=== PATIENT | male | born 1940 | race Caucasian/White ===

== ENCOUNTER 2018-08-08 03:05 | Inpatient (IN) ==
[2018-08-08] MEDS ORDERED: PANTOPRAZOLE 40 MG VIAL IV STA (03:35)
[2018-08-08] MEDS ORDERED: ASPIRIN 325 MG TABLET PO STA (03:35)
[2018-08-08] MEDS ORDERED: ALUM/MAG/SIMETH/LIDO VISC 1:1 30 ML BOTTLE PO STA (03:35)
[2018-08-08] MEDS ORDERED: MORPHINE 4 MG/1 ML VIAL IV STA (03:35)
[2018-08-08] MEDS ORDERED: NITROGLYCERIN 2% OINT 1 INCH/GM PACK TOP STA (03:35)
[2018-08-08] MEDS ORDERED: ENOXAPARIN 100 MG/ML SYRINGE SUBCUT STA (03:35)
[2018-08-08] MEDS ORDERED: ONDANSETRON 4 MG/2 ML VIAL IV STA (03:35)
[2018-08-08 03:49] LABS: Basophils # 0.1 10*3/uL (0.0-0.2); Basophils % 0.8 % (0.0-0.8); Eosinophils # 0.1 10*3/uL (0.0-0.87); Eosinophils % 0.9 % (0.00-10.9); Hematocrit 41.3 VOL% (42.0-52.0); Hemoglobin 13.1 GM/DL (14.0-18.0); Immature Granulocytes % 0.4 %; Immature Granulocytes Absolute 0.04 #; Lymphocytes # 1.6 10*3/uL (1.4-4.0); Lymphocytes % 16.5 % (21.2-54.2); Mean Corpuscular HGB Conc 31.7 GM/DL (32-36); Mean Corpuscular Hemoglobin 28 PG (27-34); Mean Corpuscular Volume 87.9 FL (87-102); Mean Platelet Volume 12.1 FL (9.6-12.0); Monocytes # 0.5 10*3/uL (0.11-0.8); Monocytes % 4.6 % (1.7-12.7); Neutrophils # 7.4 10*3/uL (1.4-7.4); Neutrophils % 76.8 % (38.7-73.9); Platelet Count 182 T/CUMM (130-400); Red Cell Distribution Width 14.8 % (9.3-17.3); White Blood Count 9.7 T/CUMM (4-12)
[2018-08-08 03:58] LABS: INR 1.1; PT Patient Result 11.4 SECS
[2018-08-08 04:09] LABS: Albumin 3.7 G/DL (3.4-5.0); Calcium 8.8 MG/DL (8.5-10.1); Osmolality,Calculated 281.3 MOS/KG (273-304); Potassium 3.8 MMOL/L (3.5-5.1); Total Protein 7.4 G/DL (6.4-8.3)
[2018-08-08] MEDS ORDERED: ONDANSETRON 4 MG/2 ML VIAL IV PRN (04:49)
[2018-08-08] MEDS ORDERED: MAGNESIUM SULF RIDER 4 GM in PREMIX 1 EACH IV PRN (04:49)
[2018-08-08] MEDS ORDERED: MORPHINE 4 MG/1 ML VIAL IV PRN (04:49)
[2018-08-08] MEDS ORDERED: POTASSIUM CHLORIDE 20 MEQ TABLET PO PRN (04:49)
[2018-08-08] MEDS ORDERED: MAGNESIUM SULF RIDER 2 GM in PREMIX 1 EACH IV PRN (04:49)
[2018-08-08] MEDS: SODIUM CHLORIDE 0.9% 1,000 ML IV SCH ×2 (05:28→18:42)
[2018-08-08] MEDS ORDERED: NITROGLYCERIN 2% OINT 1 INCH/GM PACK TOP SCH (06:00)
[2018-08-08] MEDS ORDERED: HEPARIN/NACL 0.9% 2 UNITS/ML 1,000 ML IV ONE (07:13)
[2018-08-08] MEDS ORDERED: LIDOCAINE 1% 20 ML VIAL ONE (07:13)
[2018-08-08] MEDS ORDERED: MIDAZOLAM 2 MG/2 ML VIAL ONE (07:14)
[2018-08-08] MEDS ORDERED: HYDROmorphone 2 MG/1 ML VIAL ONE (07:14)
[2018-08-08] MEDS ORDERED: BIVALIRUDIN 250 MG VIAL IV ONE (07:33)
[2018-08-08] MEDS ORDERED: ZALEPLON 5 MG CAPSULE PO PRN (08:03)
[2018-08-08] MEDS ORDERED: TICAGRELOR 90 MG TABLET ONE (08:06)
[2018-08-08] MEDS ORDERED: APIXABAN 2.5 MG TABLET PO SCH (09:00)
[2018-08-08] MEDS ORDERED: ASPIRIN EC 325 MG TABLET PO SCH (09:00)
[2018-08-08] MEDS ORDERED: PANTOPRAZOLE 40 MG TABLET PO SCH ×2 (09:00→21:00)
[2018-08-08 09:08] LABS: CKMB % 8.3 %
[2018-08-08 09:14] LABS: Troponin I 28.2 NG/ML (0.00-0.045)
[2018-08-08] MEDS: ACYCLOVIR 200 MG CAPSULE PO SCH ×3 (10:05→21:53)
[2018-08-08] MEDS: OMEGA 3 ACID ETHYL ESTERS 1 GM CAPSULE PO SCH (10:05)
[2018-08-08] MEDS: SOTALOL 80 MG TABLET PO SCH ×2 (10:05→21:50)
[2018-08-08] MEDS: POTASSIUM CHLORIDE 10 MEQ TABLET PO SCH (10:05)
[2018-08-08] MEDS: LOSARTAN 50 MG TABLET PO SCH (10:05)
[2018-08-08] MEDS: TICAGRELOR 90 MG TABLET PO SCH ×2 (10:06→21:49)
[2018-08-08] MEDS ORDERED: INFLUENZA VIRUS VACCINE 0.5 ML SYRINGE IM ONE (10:28)
[2018-08-08] MEDS: ACETAMINOPHEN 325 MG TABLET PO PRN ×2 (14:15→18:55)
[2018-08-08] MEDS ORDERED: ENOXAPARIN 100 MG/ML SYRINGE SUBCUT SCH (15:00)
[2018-08-08] MEDS ORDERED: diphenhydrAMINE CAP 25 MG CAPSULE PO PRN (15:04)
[2018-08-08] MEDS ORDERED: FUROSEMIDE 40 MG/4 ML VIAL IV ONE (15:04)
[2018-08-08 17:08] LABS: CKMB % 7.2 %
[2018-08-08 17:11] LABS: Troponin I 30.1 NG/ML (0.00-0.045)
[2018-08-08] MEDS ORDERED: SIMVASTATIN 20 MG TABLET PO SCH (21:00)
[2018-08-09 00:39] LABS: Basophils % 0.5 % (0.0-0.8); Eosinophils # 0.1 10*3/uL (0.0-0.87); Eosinophils % 0.8 % (0.00-10.9); Hematocrit 34.2 VOL% (42.0-52.0); Hemoglobin 10.9 GM/DL (14.0-18.0); Immature Granulocytes % 0.3 %; Immature Granulocytes Absolute 0.02 #; Lymphocytes # 1.3 10*3/uL (1.4-4.0); Lymphocytes % 21.4 % (21.2-54.2); Mean Corpuscular HGB Conc 31.9 GM/DL (32-36); Mean Corpuscular Hemoglobin 28 PG (27-34); Mean Corpuscular Volume 87.5 FL (87-102); Mean Platelet Volume 11.9 FL (9.6-12.0); Monocytes # 0.5 10*3/uL (0.11-0.8); Monocytes % 8.1 % (1.7-12.7); Neutrophils # 4.2 10*3/uL (1.4-7.4); Neutrophils % 68.9 % (38.7-73.9); Platelet Count 135 T/CUMM (130-400); Red Blood Count 3.91 MC/CUMM (3.8-5.5); Red Cell Distribution Width 14.8 % (9.3-17.3); White Blood Count 6.1 T/CUMM (4-12)
[2018-08-09 01:20] LABS: CKMB % 4.7 %
[2018-08-09 01:22] LABS: Troponin I 15.2 NG/ML (0.00-0.045)
[2018-08-09 01:28] LABS: Albumin 2.7 G/DL (3.4-5.0); Bilirubin,Total 0.8 MG/DL (0.2-1.0); Calcium 7.6 MG/DL (8.5-10.1); Osmolality,Calculated 285.1 MOS/KG (273-304); Potassium 3.4 MMOL/L (3.5-5.1); Risk Ratio 2.33; Thyroid Stimulating Hormone 0.562 uIU/ml (0.358-3.74); Total Protein 5.9 G/DL (6.4-8.3); VLDL CHOLESTEROL 18.4 MG/DL
[2018-08-09] MEDS ORDERED: POTASSIUM CHLORIDE 20 MEQ TABLET PO ONE (07:34)
[2018-08-09 08:21] VITALS: BP 141/69
[2018-08-09] MEDS: OMEGA 3 ACID ETHYL ESTERS 1 GM CAPSULE PO SCH (08:53)
[2018-08-09] MEDS: ACYCLOVIR 200 MG CAPSULE PO SCH (08:53)
[2018-08-09] MEDS: SOTALOL 80 MG TABLET PO SCH (08:54)
[2018-08-09] MEDS: LOSARTAN 50 MG TABLET PO SCH (08:54)
[2018-08-09] MEDS: TICAGRELOR 90 MG TABLET PO SCH (08:54)
[2018-08-09] MEDS: POTASSIUM CHLORIDE 10 MEQ TABLET PO SCH (08:55)
[2018-08-09] MEDS ORDERED: FUROSEMIDE 40 MG TABLET PO SCH (09:00)
[2018-08-09] MEDS ORDERED: ASPIRIN EC 81 MG TABLET PO SCH (09:00)
== END 2018-08-09 11:22 | disposition home or self-care (01) | DRG 247 ==
LOC: N.ED 03:05 → N.EDINP 04:23 → N.TELEN 06:44
PROVIDERS: ADMIT Internal Medicine Cardiovascular Disease; ATTEND Internal Medicine Cardiovascular Disease
PROC: CLCCHCL (ICD-10-PCS; 2018-08-08 09:15)